=== PATIENT | male | born 1960 | race Caucasian/White ===

== ENCOUNTER 2017-07-31 20:25 | Emergency (ER) | payer SELFPAY ==
[~2017-07-31] VITALS: Ht 172.7 cm; Wt 97.0 kg
[~2017-07-31 20:25] MED LIST: BACL10TA PO; CAPT50TA3 PO; HYDR-762 PO; HYDR-902 PO; MED4DP PO; NAPR-260 PO
[2017-07-31 20:28] VITALS: Ht 172.7 cm; Wt 97.0 kg
[2017-07-31] MEDS ORDERED: morphine 4 MG/ML VIAL IV STA (21:19)
[2017-07-31] MEDS ORDERED: ONDANSETRON 4 MG INJ IV STA (21:19)
[2017-07-31] MEDS ORDERED: KETOROLAC 30 MG INJ IV STA (22:08)
[2017-07-31] MEDS ORDERED: SOD CHLORIDE 0.9% 1,000 ML IV STA (22:08)
[2017-07-31 22:15] LABS: BASOPHILS % 0.2 % (0.0-2.0); EOSINOPHILS # 0.2 10^3/ul (0.0-0.5); HEMATOCRIT 41.5 % (42.0-52.0); HEMOGLOBIN 14.3 g/dl (14.0-18.0); LYMPHOCYTES # 1.8 10^3/ul (0.8-2.9); LYMPHOCYTES % 21.9 % (15.0-51.0); MEAN CORPUSCULAR HEMOGLOBIN 31.1 pg (29.0-33.0); MEAN CORPUSCULAR HGB CONC 34.5 g/dl (32.0-37.0); MEAN CORPUSCULAR VOLUME 90.2 fl (82.0-101.0); MEAN PLATELET VOLUME 10.9 fl (7.4-10.4); MONOCYTE # 0.8 10^3/ul (0.3-0.9); MONOCYTES % 10.3 % (0.0-11.0); NEUTROPHIL # 5.2 10^3/ul (1.6-7.5); NEUTROPHILS % 65.1 % (39.0-77.0); PLATELET COUNT 175 10^3/UL (140-415); RED CELL DISTRIBUTION WIDTH 12.4 % (11.5-14.5)
--- NOTE | 2017-07-31 22:28 | RADRPT ---
PROCEDURE: US Abdomen (right upper quadrant). CLINICAL INDICATION: Right upper quadrant abdomen pain. TECHNIQUE: Multiple real-time longitudinal and transverse images of the right upper quadrant of th e abdomen were acquired utilizing a curved array transducer. Images were reviewed on a high-resoluti on PACS workstation. COMPARISON: CT scan of the abdomen and pelvis dated 09/23/2015. FINDINGS: The liver is normal in size and normal in echogenicity. There is no focal hepatic lesion. Color Doppler and pulsed Doppler sonography demonstrate normal a ntegrade flow in the portal vein. The gallbladder is surgically absent. The bile ducts are normal with the common bile duct measuring 3.0 mm in diameter. The pancreas is not visualized due to overlying bowel gas. No free fluid is present. The right kidney measures 9.7 x 5.5 x 6.6 cm. There is normal echogenicity of the right kidney. T here is no perinephric fluid collection. No hydronephrosis, mass, or calculus is seen. IMPRESSION: 1. Status post cholecystectomy. 2. Pancreas not visualized. 3. Otherwise normal right upper quadrant abdomen ultrasound. RPTAT: QQ .Lui Lopez MD, Date Time Electronically viewed and signed by .Lui Lopez MD, on 07/31/2017 22:27 .R/
[2017-07-31 22:42] LABS: ALANINE AMINOTRANSFERASE 81 IU/L (13-69); ALBUMIN/GLOBULIN RATIO 1.25; ALKALINE PHOSPHATASE 119 IU/L (42-121); ANION GAP 11 (8-16); ASPARTATE AMINO TRANSFERASE 157 IU/L (15-46); BILIRUBIN,INDIRECT 0.4 mg/dl (0-1.1); BILIRUBIN,TOTAL 0.4 mg/dl (0.2-1.3); BLOOD UREA NITROGEN 19 mg/dl (7-20); CARBON DIOXIDE 29 mmol/L (21-31); CHLORIDE 107 mmol/L (97-110); CREATININE 1.05 mg/dl (0.61-1.24); GLUCOSE 105 mg/dl (70-220); POTASSIUM 3.3 mmol/L (3.5-5.1); SODIUM 144 mmol/L (135-144); TOTAL PROTEIN 7.2 g/dl (6.1-8.1)
[2017-07-31] MEDS ORDERED: AMLO-147 PO (22:42)
[2017-07-31] MEDS ORDERED: METO-336 PO (22:42)
[2017-07-31] MEDS ORDERED: LIDOCAINE/MYLANTA 40 ML BTL PO STA (22:50)
[2017-07-31 22:53] LABS: TROPONIN-I < 0.012 ng/ml (0.00-0.12)
[2017-07-31] MEDS ORDERED: RANITIDINE 150 MG TAB PO ONE (23:00)
--- NOTE | 2017-07-31 23:09 | ERD ---
ER Documentation Chief Complaint Date/Time DATE: 07/31/17 TIME: 23:06 Chief Complaint upper abd pain radaiting to back x 2 days HPI This is a 57-year-old male who presents to the emergency room for evaluation of abdominal pain. The patient states that he has had abdominal pain for the past 2 days and he localizes it to the middle portion of his abdomen. The patient describes his pain as a burning pain worse with laying flat with some radiation to the back. He denies any aggravating factors for his pain but does state that his pain did start after eating. He denies any relieving factors for his pain and came to the emergency room today for evaluation ROS All systems reviewed and are negative except as per history of present illness. Medications Home Meds Reported Medications Amlodipine Besylate* (Amlodipine Besylate*) 10 Mg Tablet, 10 MG PO DAILY, #30 TAB 07/31/17 Metoprolol Succinate* (Toprol XL*) 100 Mg Tab.sr.24h, 100 MG PO BID WITH MEALS, #30 TAB 07/31/17 Discontinued Reported Medications Captopril* (Captopril*) 50 Mg Tablet, 50 MG PO BID, TAB 09/22/15 Discontinued Scripts Methylprednisolone* (Medrol* DOSE PACK) 4 Mg/Dose-Pack Tab.ds.pk, 4 MG PO . DIRECTED, #1 PACKET Prov:DILIP PRITCHARD PA-C 10/18/16 Naproxen* (Naprosyn*) 500 Mg Tablet, 500 MG PO BID Y for PAIN AND/OR INFLAMMATION, #20 TAB Prov:DILIP PRITCHARD PA-C 10/18/16 Baclofen* (Baclofen*) 10 Mg Tablet, 10 MG PO Q8, #15 TAB Prov:DILIP PRITCHARD PA-C 10/18/16 Hydrocodone/Acetaminophen (Benedict 10-325 Tablet) 1 Each Tablet, 1 TAB PO Q6H Y for PAIN, #10 TAB Prov:DILIP PRITCHARD PA-C 10/18/16 Hydrocodone Bit-Acetaminophen* (Benedict*) 10-325 Mg Tablet, 1 TAB PO Q4H Y for PAIN, #20 TAB Prov:MARSHA BROWNLEE DO 08/21/15 Allergies Allergies: Coded Allergies: No Known Allergy (Unverified , 09/23/15) PMhx/Soc Anesthesia Reaction: No Hx Neurological Disorder: No Hx Respiratory Disorders: No Hx Cardiac Disorders: Yes (HTN) Hx Psychiatric Problems: No Hx Alcohol Use: No Hx Substance Use: No Hx Tobacco Use: No Smoking Status: Never smoker Physical Exam Vitals Vital Signs Date Time Temp Pulse Resp B/P Pulse Ox O2 Delivery O2 Flow Rate FiO2 07/31/17 20:28 98.3 53 20 152/95 98 Physical Exam INITIAL VITAL SIGNS: Reviewed by me GENERAL: The patient is well developed and appropriate for usual state of health in no apparent distress HEENT: Pupils equal, round, and reactive to light. EOMI. There is no scleral icterus. NECK: C-spine is soft and supple, there is no meningismus. There is no cervical lymphadenopathy. LUNGS: Clear to auscultation bilaterally. There are no rales, wheezes or rhonchi. HEART: Regular rate and rhythm, no murmurs, clicks, rubs or gallops. ABDOMEN: Epigastric tenderness to palpation, negative Gregg sign, otherwise soft, non-tender, non-distended. There are bowel sounds in all four quadrants. No rebound or guarding. EXTREMITIES: There is no peripheral cyanosis or edema. No focal swelling or erythema. NEUROLOGICAL: The patient moves all four extremities with 5/5 strength. Cranial nerves II - XII are intact. Normal gait. Alert and oriented SKIN: There is no apparent rash or petechiae. HEME/LYMPHATIC: There is no evidence of excessive bruising or lymphedema. PSYCHIATRIC: The patient does not appear anxious or depressed. Result Diagram: 07/31/17215407/31/172154 Results 24 hrs Laboratory Tests Test 07/31/17 21:55 White Blood Count 8.010^3/ul Red Blood Count 4.6010^6/ul Hemoglobin 14.3g/dl Hematocrit 41.5% Mean Corpuscular Volume 90.2fl Mean Corpuscular Hemoglobin 31.1pg Mean Corpuscular Hemoglobin Concent 34.5g/dl Red Cell Distribution Width 12.4% Platelet Count 39704^3/UL Mean Platelet Volume 10.9fl Neutrophils % 65.1% Lymphocytes % 21.9% Monocytes % 10.3% Eosinophils % 2.0% Basophils % 0.2% Nucleated Red Blood Cells % 0.0/100WBC Neutrophils # 5.210^3/ul Lymphocytes # 1.810^3/ul Monocytes # 0.810^3/ul Eosinophils # 0.210^3/ul Basophils # 0.010^3/ul Nucleated Red Blood Cells # 0.010^3/ul Sodium Level 144mmol/L Potassium Level 3.3mmol/L Chloride Level 107mmol/L Carbon Dioxide Level 29mmol/L Anion Gap 11 Blood Urea Nitrogen 19mg/dl Creatinine 1.05mg/dl Glucose Level 105mg/dl Calcium Level 9.0mg/dl Total Bilirubin 0.4mg/dl Direct Bilirubin 0.00mg/dl Indirect Bilirubin 0.4mg/dl Aspartate Amino Transf (AST/SGOT) 157IU/L Alanine Aminotransferase (ALT/SGPT) 81IU/L Alkaline Phosphatase 119IU/L Troponin I < 0.012ng/ml Total Protein 7.2g/dl Albumin 4.0g/dl Globulin 3.20g/dl Albumin/Globulin Ratio 1.25 Lipase 190U/L Current Medications Medications (Trade) Dose Ordered Sig/Brooks Route PRN Reason Start Time Stop Time Status Last Admin Dose Admin Morphine Sulfate (morphine) 4 mg ONCE STAT IV 07/31/17 21:19 07/31/17 21:20 DC 07/31/17 22:13 Ondansetron HCl 4 mg 4 mg ONCE STAT IV 07/31/17 21:19 07/31/17 21:20 DC 07/31/17 22:13 Sodium Chloride (NS) 1,000 ml @ 1,000 mls/hr Q1H STAT IV 07/31/17 22:08 07/31/17 23:07 07/31/17 22:32 Ketorolac Tromethamine (Toradol) 30 mg ONCE STAT IV 07/31/17 22:08 07/31/17 22:09 DC Miscellaneous Medication (Gi Cocktail (2)) 40 ml ONCE STAT PO 07/31/17 22:50 07/31/17 22:51 DC Ranitidine HCl (Zantac) 150 mg ONCE ONCE PO 07/31/17 23:00 07/31/17 23:01 DC Procedures/MDM Ultrasound gallbladder: 1. Status post cholecystectomy. 2. Pancreas not visualized. 3. Otherwise normal right upper quadrant abdomen ultrasound. This 57-year-old male presents to the emergency room for evaluation of abdominal pain. This patient had mild epigastric abdominal pain on my examination. Ultrasound of the abdomen was obtained and the patient has no signs of any obstructive process. Patient's lab work is within normal limits except for mild transaminitis. Patient was given morphine, Pepcid, and a GI cocktail for his pain and when I reevaluated the patient he said he was feeling better at this time. I reviewed his previous medical records and it does appear this patient has a history of gastritis. He is not taking any antacids and the patient will be discharged at this time with a prescription for Zantac Departure Diagnosis: Primary Impression: Abdominal pain Additional Impression: Gastritis Condition: Stable ANAHI WILKINSON DO Jul 31, 2017 23:09
[2017-07-31] MEDS ORDERED: RANI150T9 PO (23:10)
[2017-07-31 23:45] LABS: ADD UMIC YES; UR AMORPHOUS CRYSTAL FEW /HPF (NONE SEEN); UR ASCORBIC ACID NEGATIVE (NEGATIVE); UR BILIRUBIN (Dip) NEGATIVE (NEGATIVE); UR BLOOD (Dip) NEGATIVE (NEGATIVE); UR CLARITY CLOUDY (CLEAR); UR COLOR YELLOW (YELLOW); UR GLUCOSE (Dip) NEGATIVE (NEGATIVE); UR KETONES (Dip) NEGATIVE (NEGATIVE); UR LEUKOCYTE ESTERASE (Dip) NEGATIVE Leu/ul (NEGATIVE); UR NITRITE (Dip) NEGATIVE (NEGATIVE); UR RBC 0 /HPF (0-5); UR SPECIFIC GRAVITY (Dip) 1.014 (1.003-1.030); UR TOTAL PROTEIN (Dip) NEGATIVE (NEGATIVE); UR UROBILINOGEN (Dip) NEGATIVE (NEGATIVE)
[2017-07-31 23:59] VITALS: BP 107/51; PULSE 61; RESP 16
== END 2017-08-01 00:01 | disposition home or self-care (01) ==
LOC: E/R 20:25
DX: K29.70 Gastritis, unspecified, without bleeding (principal); I10 Essential (primary) hypertension
CPT/HCPCS: 36415; 76705; 80053; 81001; 83690; 84484; 85025; 93005; 96374; 96375; 99285; J2270; J2405; J7030